=== PATIENT | female | born 1945 | race African-American/Black ===

== ENCOUNTER 2024-07-01 23:10 | Inpatient (IN) | payer BC, MEDICARE ==
[~2024-07-01] VITALS: Ht 156.2 cm; Wt 88.5 kg
[2024-07-01] MEDS: FUROSEMIDE 40MG/4ML VIAL IV ONE (01:06)
[2024-07-01] MEDS: ONDANSETRON HCL 4MG/2ML INJ IV STA (01:06)
[2024-07-02] VITALS (12 sets, daily range): BP systolic 124–166; BP diastolic 47–135; PULSE 52–70; RESP 11–20; TEMP 36.72516–37.0296; O2SAT 96–100
[2024-07-02 00:18] LABS: BASOPHILS % 0.7 % (0.0-2.0); EOSINOPHILS % 10.2 % (0.0-5.0); HEMATOCRIT. 36.9 % (36.0-48.0); HEMOGLOBIN. 12.1 g/dL (12.0-16.0); LYMPHOCYTES % 16.2 % (20.0-50.0); MEAN CORPUSCULAR HEMOGLOBIN 30.3 pg (28.0-32.0); MEAN CORPUSCULAR HGB CONC 32.9 g/dL (31.0-37.0); MEAN CORPUSCULAR VOLUME 92.2 fL (81.0-99.0); MEAN PLATELET VOLUME 8.8 fl (7.4-10.4); MONOCYTES % 7.2 % (2.0-8.0); NEUTROPHILS % 65.7 % (40.0-76.0); PLATELET 213 x1000/uL (130-400); RED CELL DISTRIBUTION WIDTH 15.6 % (11.6-14.6); WHITE BLOOD COUNT 9.2 x1000/uL (4.5-11.0)
[2024-07-02 00:21] LABS: CHLORIDE 109 mEq/L (98-107); POTASSIUM 3.8 mEq/L (3.5-5.1); SODIUM 141 mEq/L (136-145)
[2024-07-02 00:22] LABS: CALCIUM 9.1 mg/dL (8.7-10.4); CARBON DIOXIDE 27 mEq/L (21-32)
[2024-07-02 00:27] LABS: CREATININE 1.1 mg/dL (0.6-1.0); GLUCOSE 116 mg/dL (70-105); UREA NITROGEN BLOOD 18 mg/dL (9-23)
[2024-07-02 00:30] LABS: TROPONIN I HIGH SENSITIVITY 4 ng/L (3.0-34)
[2024-07-02 03:29] LABS: BG BASE EXCESS 0.2 mmol/L (-2.0-3.0); BG CARBOXYHEMOGLOBIN 0.8 % (0.5-1.5); BG DEOXYHEMOGLOBIN 1.3 % (0.0-5.0); BG FRACTION INSPIRED OXYGEN 60; BG HCO3 ACT 26.9 mmol/L (21.0-28.0); BG METHEMOGLOBIN 0.3 % (0.5-1.5); BG OXYGEN SATURATION 98.7 % (94.0-98.0); BG OXYHEMOGLOBIN 97.6 % (94.0-98.0); BG PCO2 52.4 mmHg (32.0-45.0); BG PH 7.329 (7.350-7.450); BG PO2 132.4 mmHg (83.0-108.0); BG SAMPLE SITE RIGHT RADIAL; BG TOTAL HEMOGLOBIN 13.3 g/dL (12.0-16.0); BG VENT MODE MASK - BIPAP
[2024-07-02 05:19] LABS: TROPONIN I HIGH SENSITIVITY 6 ng/L (3.0-34)
[2024-07-02 06:20] LABS: TROPONIN I HIGH SENSITIVITY 6 ng/L (3.0-34)
[2024-07-02] MEDS ORDERED: ACETAMINOPHEN 325MG TABLET PO PRN ×2 (09:45)
[2024-07-02] MEDS ORDERED: CLONIDINE 0.1MG TABLET PO PRN (09:45)
[2024-07-02] MEDS ORDERED: ONDANSETRON HCL 4MG/2ML INJ IV PRN (09:45)
[2024-07-02] MEDS ORDERED: IPRATROPIUM/ALBUTEROL 0.5-3(2.5)MG/3ML NEB HHN PRN ×2 (09:45)
[2024-07-02] MEDS ORDERED: DOCUSATE SODIUM 100MG CAPSULE PO PRN (09:45)
[2024-07-02] MEDS: FUROSEMIDE 40MG/4ML VIAL IVP SCH (10:00)
[2024-07-02] MEDS ORDERED: HYDR25TA78 MT (11:00)
[2024-07-02] MEDS ORDERED: CARV25TA47 MT (11:00)
[2024-07-02] MEDS ORDERED: AMLO5TAB88 MT (11:00)
[2024-07-02] MEDS ORDERED: AMLODIPINE 5MG TABLET PO SCH (11:30)
[2024-07-02] MEDS: HYDRALAZINE HCL 25MG TABLET PO SCH (12:15)
[2024-07-02] MEDS: AMLODIPINE 5MG TABLET PO SCH (12:21)
[2024-07-02] MEDS: MONTELUKAST SODIUM 10MG TABLET PO SCH (17:00)
[2024-07-02] MEDS: LORATADINE 10MG TABLET PO SCH (17:00)
[2024-07-02] MEDS: IPRATROPIUM/ALBUTEROL 0.5-3(2.5)MG/3ML NEB HHN SCH (18:00)
[2024-07-02] MEDS: FAMOTIDINE 20MG TABLET PO SCH (20:27)
[2024-07-02] MEDS: CARVEDILOL 3.125 MG TABLET PO SCH (20:29)
[2024-07-02] MEDS ORDERED: HYDRALAZINE HCL 25MG TABLET PO SCH (21:00)
[2024-07-02] MEDS: BUDESONIDE 0.5MG/2ML NEB HHN SCH (21:03)
[2024-07-03] VITALS (16 sets, daily range): BP systolic 119–146; BP diastolic 49–65; PULSE 54–67; RESP 12–20; TEMP 36.72516–37.28076; O2SAT 91–99
[2024-07-03 07:20] LABS: CALCIUM 9.4 mg/dL (8.7-10.4); POTASSIUM 3.4 mEq/L (3.5-5.1)
[2024-07-03 07:24] LABS: CREATININE 1.3 mg/dL (0.6-1.0)
[2024-07-03 07:49] LABS: BASOPHILS % 0.9 % (0.0-2.0); EOSINOPHILS % 10.3 % (0.0-5.0); HEMATOCRIT. 39.1 % (36.0-48.0); LYMPHOCYTES % 20.3 % (20.0-50.0); MEAN CORPUSCULAR HEMOGLOBIN 30.7 pg (28.0-32.0); MEAN CORPUSCULAR HGB CONC 33.4 g/dL (31.0-37.0); MEAN CORPUSCULAR VOLUME 91.9 fL (81.0-99.0); MEAN PLATELET VOLUME 9.1 fl (7.4-10.4); MONOCYTES % 7.5 % (2.0-8.0); PLATELET 228 x1000/uL (130-400); RED BLOOD CELL COUNT 4.25 mill/uL (4.2-5.4); RED CELL DISTRIBUTION WIDTH 15.4 % (11.6-14.6); WHITE BLOOD COUNT 7.4 x1000/uL (4.5-11.0)
[2024-07-03] MEDS: HYDRALAZINE HCL 25MG TABLET PO SCH (08:41)
[2024-07-04] VITALS (16 sets, daily range): BP systolic 117–155; BP diastolic 52–68; PULSE 56–80; RESP 14–24; TEMP 36.55848–37.28076; O2SAT 73–100
[2024-07-05] VITALS (9 sets, daily range): BP systolic 126–163; BP diastolic 54–62; PULSE 59–89; RESP 11–25; TEMP 36.83628–37.00296; O2SAT 92–100
[2024-07-05] MEDS ORDERED: FURO40TA5 MT (14:41)
[2024-07-05] MEDS ORDERED: ALBU18HF2 IH (14:41)
[2024-07-05] MEDS ORDERED: AMLO10TA80 MT (14:41)
[2024-07-05] MEDS ORDERED: CLAR10 PO (14:41)
[2024-07-05] MEDS ORDERED: MONT-46 PO (14:41)
== END 2024-07-05 17:01 | disposition left against medical advice (07) | DRG 291 ==
LOC: ER 23:23 → EDBD 23:23 → 5EST 07-02 00:41 → EDBEDREQDT 07-02 01:08 → EDBEDREQTM 07-02 01:08 → EDBEDREQ 07-02 01:08 → EDBEDREQSVC 07-02 01:08
PROVIDERS: ADMIT Family Medicine Adult Medicine; ATTEND Family Medicine Adult Medicine
PROC: 5A09357 Assistance with Respiratory Ventilation, Less than 24 Consecutive Hours, Continuous Positive Airway Pressure (ICD-10-PCS; principal; 2024-07-02)
PROC: 5A09357 Assistance with Respiratory Ventilation, Less than 24 Consecutive Hours, Continuous Positive Airway Pressure (ICD-10-PCS; 2024-07-03)
PROC: 5A09357 Assistance with Respiratory Ventilation, Less than 24 Consecutive Hours, Continuous Positive Airway Pressure (ICD-10-PCS; 2024-07-05)
DX: I11.0 Hypertensive heart disease with heart failure (principal); I50.33 Acute on chronic diastolic (congestive) heart failure; J96.01 Acute respiratory failure with hypoxia; J96.02 Acute respiratory failure with hypercapnia; E87.29 Other acidosis; Z20.822 Contact with and (suspected) exposure to COVID-19; I16.0 Hypertensive urgency; F41.9 Anxiety disorder, unspecified; D72.10 Eosinophilia, unspecified; E87.6 Hypokalemia; G47.33 Obstructive sleep apnea (adult) (pediatric); Z88.0 Allergy status to penicillin; Z87.891 Personal history of nicotine dependence; Z53.29 Procedure and treatment not carried out because of patient's decision for other reasons
CPT/HCPCS: 36415; 36600; 71045; 80048; 82375; 82805; 83880; 84484; 85025; 85379; 87426; 87804; 93005; 93306; 94618; 94640; 94660; 99291; J1940; J2405; J7626